=== PATIENT | female | born 2000 | race Caucasian/White ===

== ENCOUNTER 2021-10-15 02:19 | Emergency (ER) | payer MEDICAID, SELFPAY ==
[2021-10-15] MEDS ORDERED: Orphenadrine Citrate 60 MG/2 ML VIAL IM SCH (03:30)
== END 2021-10-15 04:31 | disposition home or self-care (01) ==
LOC: ERS 02:19
DX: S09.90XA Unspecified injury of head, initial encounter (principal); S16.1XXA Strain of muscle, fascia and tendon at neck level, initial encounter; W18.30XA Fall on same level, unspecified, initial encounter
CPT/HCPCS: 70450; 72125; J2360